=== PATIENT | female | born 1945 | race Caucasian/White ===

== ENCOUNTER → 2023-10-01 12:32 | Outpatient (REF) | payer MEDICARE, OTHER, SELFPAY | LOC: HWRCS 12:32 | PROVIDERS: ATTENDING PHYSICIAN Internal Medicine Cardiovascular Disease; FAMILY PHYSICIAN Internal Medicine | DX: R00.2 Palpitations (principal) | CPT/HCPCS: 93306 ==

== ENCOUNTER → 2023-11-06 09:00 | Outpatient (REF) | payer MEDICARE, OTHER, SELFPAY ==
[2023-11-06 12:28] LABS: ALT (SGPT) 21 U/L (0-35); AST (SGOT) 27 U/L (14-36); Albumin 4.5 g/dl (3.5-5.0); Alkaline Phosphatase 99 U/L (38-126); Blood Urea Nitrogen 24 mg/dl (7-17); Calcium 10.1 mg/dl (8.4-10.2); Carbon Dioxide 27 mmol/L (22-30); Chloride 104 mmol/L (98-107); Glucose 122 mg/dl (70-99); HDL Cholesterol 64 mg/dl; LDL Cholesterol, Calculated 72 mg/dl; Sodium 141 mmol/L (135-145); Total Bilirubin 0.5 mg/dl (0.2-1.3); Total Cholesterol 160 mg/dl (50-199); Total Protein 7.8 g/dl (6.3-8.2); Triglyceride 123 mg/dl (10-149); Very Low Density Lipoprotein 24 mg/dl (0-30); eGFR > 60.00
== END ==
LOC: HWLAB 09:00
PROVIDERS: ATTENDING PHYSICIAN Internal Medicine
DX: I47.19 Other supraventricular tachycardia (principal); E11.9 Type 2 diabetes mellitus without complications
CPT/HCPCS: 36415; 80053; 80061; 83036; 84443

== ENCOUNTER → 2023-11-12 10:36 | Outpatient (REF) | payer MEDICARE, OTHER, SELFPAY | LOC: HWWDC 10:36 | PROVIDERS: ATTENDING PHYSICIAN Internal Medicine | DX: Z12.31 Encounter for screening mammogram for malignant neoplasm of breast (principal) | CPT/HCPCS: 77063; 77067 ==

== ENCOUNTER → 2024-07-30 10:09 | Outpatient (REF) | payer MEDICARE, OTHER, SELFPAY ==
[2024-07-30 12:20] LABS: % Basophils 1.1 % (0-2); % Immature Granulocytes 0.2 % (0-0.5); % Lymphocytes 29.7 % (20.5-51.1); % Monocytes 10.8 % (1.7-9.3); % Neutrophils 54.2 % (42.2-75.2); Absolute Basophils 0.1 10^3/uL (0-0.2); Absolute Eosinophils 0.2 10^3/uL (0-0.7); Absolute Lymphocytes 1.6 10^3/uL (1.2-3.4); Absolute Monocytes 0.6 10^3/uL (0.1-0.6); Absolute Neutrophils 2.9 10^3/uL (1.4-6.5); Hematocrit 33.4 % (37.0-47.0); Hemoglobin 10.3 g/dL (12.0-16.0); Mean Corp Hgb Conc. 30.8 g/dL (33.0-37.0); Mean Corpuscular Volume 87.7 fL (81.0-99.0); Mean Platelet Volume 9.8 fL (7.4-10.4); Nucleated Red Blood Cells % 0 %; Platelet Count 384 10^3/uL (130-400); Red Blood Cell Count 3.81 10^6/uL (4.20-5.40); Red Cell Dist. Width 14.6 % (11.5-14.5); White Blood Cell Count 5.3 10^3/uL (4.8-10.8)
[2024-07-30 15:04] LABS: ALT (SGPT) 25 U/L (0-35); AST (SGOT) 27 U/L (14-36); Albumin 4.4 g/dl (3.5-5.0); Alkaline Phosphatase 78 U/L (38-126); Blood Urea Nitrogen 23 mg/dl (7-17); Calcium 9.8 mg/dl (8.4-10.2); Carbon Dioxide 23 mmol/L (22-30); Chloride 106 mmol/L (98-107); Glucose 144 mg/dl (70-99); HDL Cholesterol 61 mg/dl; LDL Cholesterol, Calculated 92 mg/dl; Potassium 4.9 mmol/L (3.5-5.1); Sodium 140 mmol/L (135-145); Total Bilirubin 0.5 mg/dl (0.2-1.3); Total Cholesterol 174 mg/dl (50-199); Total Protein 7.4 g/dl (6.3-8.2); Triglyceride 105 mg/dl (10-149); Very Low Density Lipoprotein 21 mg/dl (0-30); eGFR 58.02
== END ==
LOC: HWLAB 10:09
PROVIDERS: ATTENDING PHYSICIAN Internal Medicine
DX: E11.9 Type 2 diabetes mellitus without complications (principal); E78.00 Pure hypercholesterolemia, unspecified; K21.9 Gastro-esophageal reflux disease without esophagitis; I10 Essential (primary) hypertension
CPT/HCPCS: 36415; 80053; 80061; 83036; 85025

== ENCOUNTER → 2024-09-02 11:03 | Outpatient (REF) | payer MEDICARE, OTHER, SELFPAY ==
[2024-09-02 15:39] LABS: % Eosinophils 2.1 % (0-6); % Immature Granulocytes 0.5 % (0-0.5); % Lymphocytes 27.8 % (20.5-51.1); % Monocytes 9.7 % (1.7-9.3); % Neutrophils 58.9 % (42.2-75.2); Absolute Basophils 0.1 10^3/uL (0-0.2); Absolute Eosinophils 0.1 10^3/uL (0-0.7); Absolute Lymphocytes 1.7 10^3/uL (1.2-3.4); Absolute Monocytes 0.6 10^3/uL (0.1-0.6); Absolute Neutrophils 3.6 10^3/uL (1.4-6.5); Hematocrit 33.1 % (37.0-47.0); Hemoglobin 10.4 g/dL (12.0-16.0); Mean Corp Hgb Conc. 31.4 g/dL (33.0-37.0); Mean Corpuscular Hgb 27.2 pg (27.0-31.0); Mean Corpuscular Volume 86.6 fL (81.0-99.0); Mean Platelet Volume 10.6 fL (7.4-10.4); Nucleated Red Blood Cells % 0 %; Platelet Count 360 10^3/uL (130-400); Red Blood Cell Count 3.82 10^6/uL (4.20-5.40); Red Cell Dist. Width 15.6 % (11.5-14.5); White Blood Cell Count 6.1 10^3/uL (4.8-10.8)
[2024-09-02 15:51] LABS: Blood Urea Nitrogen 26 mg/dl (7-17); Calcium 10.3 mg/dl (8.4-10.2); Carbon Dioxide 25 mmol/L (22-30); Chloride 101 mmol/L (98-107); Glucose 92 mg/dl (70-99); Iron 54 ug/dl (37-170); Magnesium 2.2 mg/dl (1.6-2.3); Sodium 139 mmol/L (135-145); eGFR 58.02
[2024-09-02 16:00] LABS: Percent Saturation 12 % (20-50); Total Iron Binding Capacity 433 ug/dl (265-497)
[2024-09-02 16:19] LABS: Ferritin 7.2 ng/ml (11.1-264.0)
== END ==
LOC: HWLAB 11:03
PROVIDERS: ATTENDING PHYSICIAN Internal Medicine
DX: G25.81 Restless legs syndrome (principal); D50.0 Iron deficiency anemia secondary to blood loss (chronic)
CPT/HCPCS: 36415; 80048; 82728; 83540; 83550; 83735; 85025

== ENCOUNTER → 2024-11-13 11:08 | Outpatient (REF) | payer MEDICARE, OTHER, SELFPAY ==
[2024-11-13 12:42] LABS: % Eosinophils 3.2 % (0-6); % Immature Granulocytes 0.2 % (0-0.5); % Lymphocytes 23.3 % (20.5-51.1); % Neutrophils 63.3 % (42.2-75.2); Absolute Basophils 0.1 10^3/uL (0-0.2); Absolute Eosinophils 0.2 10^3/uL (0-0.7); Absolute Lymphocytes 1.4 10^3/uL (1.2-3.4); Absolute Monocytes 0.5 10^3/uL (0.1-0.6); Absolute Neutrophils 3.7 10^3/uL (1.4-6.5); Hematocrit 35.1 % (37.0-47.0); Hemoglobin 11.4 g/dL (12.0-16.0); Mean Corp Hgb Conc. 32.5 g/dL (33.0-37.0); Mean Corpuscular Hgb 29.5 pg (27.0-31.0); Mean Corpuscular Volume 90.7 fL (81.0-99.0); Mean Platelet Volume 10.4 fL (7.4-10.4); Nucleated Red Blood Cells % 0 %; Platelet Count 329 10^3/uL (130-400); Red Blood Cell Count 3.87 10^6/uL (4.20-5.40); Red Cell Dist. Width 16.5 % (11.5-14.5); White Blood Cell Count 5.9 10^3/uL (4.8-10.8)
[2024-11-13 13:49] LABS: Iron 87 ug/dl (37-170)
[2024-11-13 14:01] LABS: Percent Saturation 25 % (20-50); Total Iron Binding Capacity 342 ug/dl (265-497)
[2024-11-13 14:26] LABS: Ferritin 12.6 ng/ml (11.1-264.0)
== END ==
LOC: HWWDC 11:08
PROVIDERS: ATTENDING PHYSICIAN Internal Medicine
DX: Z12.31 Encounter for screening mammogram for malignant neoplasm of breast (principal); D50.9 Iron deficiency anemia, unspecified; K62.5 Hemorrhage of anus and rectum
CPT/HCPCS: 36415; 77063; 77067; 82728; 83540; 83550; 85025

== ENCOUNTER → 2024-12-08 10:32 | Outpatient (REF) | payer MEDICARE, OTHER, SELFPAY ==
[2024-12-08 12:40] LABS: Glycohemoglobin (HgbA1c) 6.1 % (4.0-5.6)
[2024-12-08 12:55] LABS: HDL Cholesterol 62 mg/dl; LDL Cholesterol, Calculated 94 mg/dl; Total Cholesterol 183 mg/dl (50-199); Triglyceride 139 mg/dl (10-149); Very Low Density Lipoprotein 27 mg/dl (0-30)
[2024-12-08 13:50] LABS: Microalbumin, Random Urine 1.2 mg/dl (0.6-1.7)
== END ==
LOC: HWLAB 10:32
PROVIDERS: ATTENDING PHYSICIAN Internal Medicine
DX: E11.9 Type 2 diabetes mellitus without complications (principal)
CPT/HCPCS: 36415; 80061; 82043; 83036

== ENCOUNTER 2025-01-09 06:12 | Day surgery (SDC) | payer MEDICARE, SELFPAY ==
[2025-01-09 10:04] VITALS: BP 120/60
[2025-01-09 10:12] VITALS: BMI 34.5
[2025-01-09 10:17] LABS: Hematocrit 39.1 % (37.0-47.0); Hemoglobin 13.4 g/dL (12.0-16.0); Mean Corp Hgb Conc. 34.3 g/dL (33.0-37.0); Mean Corpuscular Hgb 29.6 pg (27.0-31.0); Mean Corpuscular Volume 86.5 fL (81.0-99.0); Mean Platelet Volume 9.6 fL (7.4-10.4); Platelet Count 215 10^3/uL (130-400); Red Blood Cell Count 4.52 10^6/uL (4.20-5.40); Red Cell Dist. Width 14.4 % (11.5-14.5); White Blood Cell Count 4.7 10^3/uL (4.8-10.8)
[2025-01-09 11:33] VITALS: BP 116/98
[2025-01-09 11:46] VITALS: BP 111/60
[2025-01-09 11:51] VITALS: BP 111/75
== END 2025-01-09 12:09 | disposition home or self-care (01) ==
LOC: SDS 06:12
PROVIDERS: Student in an Organized Health Care Education/Training Program; ATTENDING PHYSICIAN Internal Medicine Gastroenterology
DX: D12.2 Benign neoplasm of ascending colon (principal); K55.20 Angiodysplasia of colon without hemorrhage; K64.8 Other hemorrhoids; D50.9 Iron deficiency anemia, unspecified; K22.70 Barrett's esophagus without dysplasia; K22.89 Other specified disease of esophagus; K31.89 Other diseases of stomach and duodenum; K21.9 Gastro-esophageal reflux disease without esophagitis
CPT/HCPCS: 45388; 45385; 43239; 88305; 85027; 88342

== ENCOUNTER 2025-01-21 12:18 | Emergency (ER) | payer MEDICARE, OTHER, SELFPAY ==
[2025-01-21 12:20] VITALS: BP 169/81
[2025-01-21 13:51] VITALS: BMI 35.9
[2025-01-21 14:06] LABS: % Basophils 0.5 % (0-2); % Immature Granulocytes 0.3 % (0-0.5); % Lymphocytes 27.2 % (20.5-51.1); % Monocytes 11.3 % (1.7-9.3); % Neutrophils 57.7 % (42.2-75.2); Absolute Eosinophils 0.3 10^3/uL (0-0.7); Absolute Lymphocytes 2.3 10^3/uL (1.2-3.4); Hematocrit 29.1 % (37.0-47.0); Hemoglobin 9.3 g/dL (12.0-16.0); Mean Corpuscular Hgb 28.7 pg (27.0-31.0); Mean Corpuscular Volume 89.8 fL (81.0-99.0); Mean Platelet Volume 9.2 fL (7.4-10.4); Nucleated Red Blood Cells % 0 %; Platelet Count 402 10^3/uL (130-400); Red Blood Cell Count 3.24 10^6/uL (4.20-5.40); White Blood Cell Count 8.6 10^3/uL (4.8-10.8)
[2025-01-21 14:11] LABS: Urine Albumin Negative (Neg - Trace); Urine Bilirubin Negative (Negative); Urine Character Clear (Clear); Urine Color Yellow; Urine Glucose Negative (Negative); Urine Ketone Negative (Negative); Urine Leukocyte Negative (Negative); Urine Nitrite Negative (Negative); Urine Occult Blood Negative (Negative); Urine Urobilinogen Negative (Neg - 1+)
[2025-01-21] MEDS: NSS 500 IV (14:14)
[2025-01-21 14:25] LABS: ALT (SGPT) 17 U/L (0-35); AST (SGOT) 20 U/L (14-36); Albumin 4.4 g/dl (3.5-5.0); Alkaline Phosphatase 75 U/L (38-126); Blood Urea Nitrogen 17 mg/dl (7-17); Carbon Dioxide 26 mmol/L (22-30); Chloride 110 mmol/L (98-107); Estimated Creatinine Clearance 48 ml/min; Glucose 66 mg/dl (70-99); Potassium 4.5 mmol/L (3.5-5.1); Sodium 144 mmol/L (135-145); Total Bilirubin 0.5 mg/dl (0.2-1.3); Total Protein 7.5 g/dl (6.3-8.2); eGFR 57.66
[2025-01-21 14:46] LABS: Lipase 68 U/L (23-300)
--- NOTE | 2025-01-21 16:37 | ED.GENMED ---
History of Present Illness
General
Chief Complaint: Foreign Body Ingestion
Source: patient
Exam Limitations: none
Time Seen by Provider: 01/21/25 13:06
Nursing documentation reviewed up to this point in time: agreed with
History of Present Illness
History of Present Illness:
Patient is a 79-year-old female who presents to the ER for evaluation. Patient swallowed a endoscopy pill camera on Sunday and ever since then has had extreme gas pains and lower abdominal pain. She is only moved bowels a little bit. She has been
eating however denies any nausea or vomiting.
She has not seen the capsule passed in her stool yet. Denies any dark or black stools. She does mention that prior to her colonoscopy prep several weeks ago May she had some rectal bleeding which is what prompted the capsule study being done. GI
is aware of this. She has had no further rectal bleeding since then denies any lightheaded weak. She reports stools brown in color.
Past History
Past History
ED Past Medical History: HTN, Hypercholesterolemia and Other
ED Past Surgical History: , Gynecological, Orthopedic and Other
Social History
Tobacco: Non-smoker
Alcohol: None
Drug: None
Personal:
Living: with family
Family History
Family History: Other
Review of Systems
Review of Systems
Allergies reviewed?: Yes
All Other Systems: ROS reviewed and negative except as documented in HPI and ROS
Constitutional: Reports no symptoms; Denies fever, fatigue or chills
Respiratory: Reports no symptoms
Cardiac: Reports no symptoms
ABD/GI: Reports abdominal pain (gas pain ), nausea and constipated; Denies vomiting
: Reports no symptoms
Musculoskeletal: Reports no symptoms
Skin: Reports no symptoms
Neurological: Reports no symptoms
Psychiatric: Reports no symptoms
Phy Exam
General Physical Exam
General Presentation: no apparent distress
General age: appears stated age
General Skin: warm and dry
General Habitus: normal
General Mental: alert
General Hydration: appears well hydrated
Cardiovascular Exam
Cardiovascular Exam: regular rate/rhythm, no murmur and normal peripheral pulses
Pulmonary Exam
Pulmonary Exam: lungs clear and no respiratory distress
Gastrointestinal Exam
Gastrointestinal Exam: normal bowel sounds, non tender, soft and other (Mild lower abdominal tenderness.)
Neurological Exam
Neurological Exam: alert and oriented x3
Musculoskeletal Exam
Musculoskeletal Exam: full ROM
Skin Exam
Skin Exam: normal color and warm/dry
Psychiatric Exam
Psychiatric Exam: normal mood/affect
Course
Orders/Labs/Results
Orders:
Orders
01/21/25 13:26
Iohexol [Omnipaque] See Protocol PO NOW STA
01/21/25 13:28
0.9% Sodium Chloride 500 ml [Nss] 500 ml IV BOLUS
01/21/25 13:38
CT Abd/pelvis W Iv Cont Urgent
Comment:
Reason For Exam: pain s/p swallowing pill camera
01/21/25 13:56
Complete Blood Count/With Diff Urgent
Comprehensive Metabolic Panel Urgent
Lipase Urgent
Urinalysis Reflex To Culture Urgent
Date Specimen was Collected: 01/21/25
Time Specimen was Collected: 13:44
Abnormal Lab Results
01/21/25
13:56
RBC 3.24 L 10^6/uL
(4.20-5.40)
Hgb 9.3 L g/dL
(12.0-16.0)
Hct 29.1 L %
(37.0-47.0)
MCHC 32.0 L g/dL
(33.0-37.0)
Plt Count 402 H 10^3/uL
(130-400)
Absolute Monos (auto) 1.0 H 10^3/uL
(0.1-0.6)
Monocytes % 11.3 H %
(1.7-9.3)
Chloride 110 H mmol/L
(98-107)
Glucose 66 L mg/dl
(70-99)
01/21/25 13:56
01/21/25 13:56
Vital Signs
Initial and Last Documented VS:
Initial Vital Signs
Temp Pulse Resp BP Pulse Ox
98.2 F 85 16 169/81 98
01/21/25 12:20 01/21/25 12:20 01/21/25 12:20 01/21/25 12:20 01/21/25 12:20
Last Documented Vital Signs
Temp Pulse Resp BP Pulse Ox
98.2 F 55 16 169/81 97
01/21/25 12:20 01/21/25 14:00 01/21/25 12:20 01/21/25 12:20 01/21/25 14:27
MDM/Problems Addressed
Differential Diagnosis Includes:
Not limited to foreign body, obstruction less likely diverticulitis colitis
MDM/Problems Addressed:
Patient is a 79-year-old female swallowed a endoscopy pill capsule on Sunday has not passed it that she is aware of and has had abdominal discomfort gas pain since. She presents awake alert no acute distress denies any fever she has been eating no
nausea vomiting. She has no weakness. Case reviewed with GI CAT scan without the contrast was done and does show ingested endoscopy camera capsule Timmons situated in the mid sigmoid colon with no proximal obstruction or wall thickening no adjacent
soft tissue surrounding stranding. Mild colonic fecal burden incidental cholelithiasis.
As discussed with GI patient will be discharged with outpatient continuing MiraLAX
Her hemoglobin today is 9 .3. When she had a colonoscopy January 09 she reports it was 13.4 however her baseline is normally between 10 and 11. She does tell me that she had rectal bleeding when she was prepping for the colonoscopy and this is one of
the reason she is having endoscopy. GI made aware. Pt is stable for discharge home.
*Radiology
Radiology exam reviewed: radiology read reviewed
*Pulse Oximetry
Patient hypoxic: no
*Critical Care Note
Total Time (30-74mins, 75-104mins- exclusive of procedures): Not Applicable
Patient Management
Discussion with other providers: [employer] (ARNOLDO Vásquez )
ED Attending Note
-
Portions of this chart may have been created with voice recognition software.� Occasional wrong word or��sound alike� substitutions may have occurred due to the inherent limitations of voice recognition software.
Discharge Plan
Departure
Patient Disposition: Home (Routine Discharge)
Date of Disposition: 01/21/25
Time of Disposition: 16:52
Patient with high blood pressure during this ER visit?: Yes
Condition: Fair
Covid-19: Not Applicable
Discharge Problem:
Abdominal pain
Instructions: Abdominal pain in adults - Discharge instructions, BLOOD PRESSURE
Prescriptions:
No Action
atorvastatin 10 MG tablet
10 mg PO HS
docusate sodium 100 MG capsule
100 mg PO BID
gabapentin 300 MG capsule
900 mg PO HS
gabapentin 300 MG capsule
300 mg PO DAILY
duloxetine 60 MG capsule,delayed release(DR/EC)
60 mg PO HS
multivitamin with folic acid [Tab-A-Weston] 1 TABLET tablet
1 tab PO DAILY
acetaminophen 500 MG tablet
1,000 mg PO Q6H Qty: 60 0RF
Rx Instructions:
Do not exceed >4000 mg daily.
baclofen 10 MG tablet
10 mg PO HS Qty: 0 0RF
telmisartan 40 MG tablet
40 mg PO HS Qty: 0 0RF
Rx Instructions:
Hold if systolic blood pressure <130 while on Oxycodone.
omeprazole 40 mg Capsule,Delayed Release(Dr/Ec)
40 mg PO BID
tramadol 50 mg Tablet
50 mg PO Q8H PRN (Reason: pain )
oxybutynin chloride 5 mg Tablet
5 mg PO HS
aspirin 81 mg Capsule
81 mg PO DAILY
celecoxib 200 MG capsule
200 mg PO BID
vitamin E (dl, acetate) 100 UNITS capsule
100 units PO DAILY
Rx Instructions:
Resume in 1 week.
alprazolam 1 MG tablet
1 mg PO Q4H
Rx Instructions:
Caution with Oxycodone - can cause drowsiness.
Take only as needed/as directed.
glimepiride 2 mg Tablet
2 mg PO BID
metoprolol succinate 25 mg Capsule,Sprinkle,Er 24hr
25 mg PO BID
Referrals:
Mumtaz Farmer MD [Family Provider, Internal Medicine]
Charlotte Vásquez MD [Active, Gastroenterology]
Activity Restrictions/Additional Instructions:
As discussed please continue to take MiraLAX and be sure to retrieve the capsule when you pass it and bring it to GI as scheduled. Please stay well-hydrated. In addition
Please discuss with GI that you have gallstones in your gallbladder you may need an additional outpatient nonemergent ultrasound.
Return if any worsening of symptoms include increasing pain nausea vomiting fever chills or any further concerns.
Interventions
Interventions:
*Risk Screen - Suicide Last Done: 01/21/25 12:20
*General Assessment Last Done: 01/21/25 14:26
*Neglect/Abuse Screening Last Done: 01/21/25 12:20
*ED COVID-19 Vaccine History Last Done: 01/21/25 14:26
TE-Lofbzp-Mrjrcdeggg Assessment Last Done: 01/21/25 14:27
ED- Pulmonary Assessment Last Done: 01/21/25 14:27
Discharge Date and Time
Print Language: ROMANIAN
== END 2025-01-21 17:07 | disposition home or self-care (01) ==
LOC: EMR 12:18
PROVIDERS: Nurse Practitioner; EMERGENCY PHYSICIAN Emergency Medicine; FAMILY PHYSICIAN Internal Medicine
DX: R10.30 Lower abdominal pain, unspecified (principal); I10 Essential (primary) hypertension; E78.00 Pure hypercholesterolemia, unspecified; K80.20 Calculus of gallbladder without cholecystitis without obstruction
CPT/HCPCS: 99284; 96360; 74177; 80053; 81003; 83690; 85025; Q9967

== ENCOUNTER → 2025-02-11 09:46 | Outpatient (REF) | payer MEDICARE, OTHER, SELFPAY ==
[2025-02-11 11:17] LABS: % Basophils 1.1 % (0-2); % Eosinophils 6.2 % (0-6); % Immature Granulocytes 0.4 % (0-0.5); % Lymphocytes 30.5 % (20.5-51.1); % Monocytes 12.4 % (1.7-9.3); % Neutrophils 49.4 % (42.2-75.2); Absolute Basophils 0.1 10^3/uL (0-0.2); Absolute Eosinophils 0.4 10^3/uL (0-0.7); Absolute Lymphocytes 1.7 10^3/uL (1.2-3.4); Absolute Monocytes 0.7 10^3/uL (0.1-0.6); Absolute Neutrophils 2.8 10^3/uL (1.4-6.5); Hemoglobin 9.4 g/dL (12.0-16.0); Mean Corp Hgb Conc. 31.3 g/dL (33.0-37.0); Mean Corpuscular Hgb 27.2 pg (27.0-31.0); Mean Corpuscular Volume 86.7 fL (81.0-99.0); Mean Platelet Volume 10.1 fL (7.4-10.4); Nucleated Red Blood Cells % 0 %; Platelet Count 373 10^3/uL (130-400); Red Blood Cell Count 3.46 10^6/uL (4.20-5.40); Red Cell Dist. Width 14.5 % (11.5-14.5); White Blood Cell Count 5.6 10^3/uL (4.8-10.8)
== END ==
LOC: HWLAB 09:46
PROVIDERS: ATTENDING PHYSICIAN Internal Medicine
DX: D50.0 Iron deficiency anemia secondary to blood loss (chronic) (principal); D50.9 Iron deficiency anemia, unspecified
CPT/HCPCS: 36415; 85025

== ENCOUNTER → 2025-06-03 09:27 | Outpatient (REF) | payer MEDICARE, OTHER, SELFPAY ==
[2025-06-03 12:31] LABS: Hematocrit 32.3 % (37.0-47.0); Hemoglobin 10.3 g/dL (12.0-16.0); Mean Corp Hgb Conc. 31.9 g/dL (33.0-37.0); Mean Corpuscular Volume 82.4 fL (81.0-99.0); Nucleated Red Blood Cells % 0 %; Platelet Count 333 10^3/uL (130-400); Red Cell Dist. Width 18.0 % (11.5-14.5)
[2025-06-03 12:38] LABS: Iron 57 ug/dl (37-170)
[2025-06-03 12:49] LABS: Total Iron Binding Capacity 375 ug/dl (265-497)
[2025-06-03 13:06] LABS: Glycohemoglobin (HgbA1c) 5.9 % (4.0-5.6)
[2025-06-03 13:16] LABS: Ferritin 8.1 ng/ml (11.1-264.0)
== END ==
LOC: HWLAB 09:27
PROVIDERS: ATTENDING PHYSICIAN Physician Assistant; FAMILY PHYSICIAN Internal Medicine
DX: D50.8 Other iron deficiency anemias (principal); E11.9 Type 2 diabetes mellitus without complications
CPT/HCPCS: 82728; 83036; 83540; 83550; 85025

== ENCOUNTER → 2025-07-14 13:14 | Outpatient (REF) | payer MEDICARE, OTHER, SELFPAY | LOC: RAD 13:14 | PROVIDERS: ATTENDING PHYSICIAN Podiatrist Foot & Ankle Surgery; FAMILY PHYSICIAN Internal Medicine | DX: E04.1 Nontoxic single thyroid nodule (principal); I73.89 Other specified peripheral vascular diseases; E11.9 Type 2 diabetes mellitus without complications | CPT/HCPCS: 76536; 93925 ==